=== PATIENT | male | born 1975 | race Caucasian/White ===

== ENCOUNTER 2017-06-19 12:55 | Day surgery (SDC) | payer BC ==
--- NOTE | 2017-06-19 14:40 | Operative Note ---
Upper GI Endoscopy Procedure date: 06/19/17 Date of : 73 Procedure:Upper GI Endoscopy Esophagogastroduodenoscopy with cold biopsies and TTS balloon dilation Indications: Mr. Mcduffie is a 42-year-old gentleman with epigastric and periumbilical abdominal discomfort with bloating, nausea and crampy discomfort. He reports some reflux and early satiety. He has occasional dysphagia to breads. He reports no heartburn. He has had no melena or weight loss. He was placed on MiraLAX plus Metamucil by Montse CALVILLO. He does have some obstipation. He had been on omeprazole and BuSpar 15 mg by mouth twice a day. Performing Provider: Carlos Wang MD Referring Provider: Geneva Gupta Sedation: Fentanyl 100 mg IV/Versed 7 mg IV Procedure: Prior to the procedure, a history and physical exam was performed, and patients medications and allergies were reviewed. The risks and benefits of the procedure and the sedation options and risks were discussed with the patient. All questions were answered and informed consent was obtained. The patient was brought to the procedure room. Patient identification and proposed procedure were verified by the physician and the nurse. The patient was placed in a left lateral decubitus position and the scope was passed under direct vision. Throughout the procedure, the patient's blood pressure, pulse, and oxygen saturations were monitored continuously. The endoscope was introduced through the mouth, and advanced to the second part of duodenum. The upper GI endoscopy was accomplished without difficulty. The patient tolerated the procedure well. Findings: The scope was passed directly into the upper esophagus and advanced to the third portion of the duodenum. The post bulbar duodenum and duodenal bulb were normal with normal mucosa and conniventes. Cold biopsies were taken from the post bulbar duodenum to rule out celiac disease. The scope was withdrawn through a normal duodenal bulb and pylorus into the stomach. There was linear erythema and of the antrum with punctate erosions suggestive of linear reactive gastritis and possibly some nonsteroidal anti-inflammatory drug gastropathy. The remainder of the antrum, body and fundus of the stomach were grossly normal. Upon retroflexion there was no hiatal hernia. 2 biopsies were taken in the antrum and along the lesser curvature for histology. The scope was then withdrawn into the esophagus. There were short tongues and at least a couple of islands of salmon colored mucosa distally that were biopsied to rule out intestinal metaplasia/ short segment Cornejo's esophagus. There was no evidence of reflux esophagitis or Schatzki's ring. There were tertiary contractions and evidence of moderate esophageal dysmotility. The entire esophagus was dilated to 60 Georgian/20 mm with a TTS hydrostatic balloon. There was some resistance at the cricopharyngeus/ upper esophageal sphincter. The remainder of the esophageal mucosa was normal. Immediate complications: None EBL (ml): 0 Impression: 1. Cricopharyngeal spasm 2. Nonerosive gastroesophageal reflux disease with mild esophageal dysmotility and possible very short segment Cornejo's esophagus 3. Linear reactive gastritis Recommendations: I will follow up the biopsies. I do feel that the patient has functional dyspepsia and functional gastroesophageal reflux disease related to his obstipation. I would continue the fiber bowel regimen and treatment for visceral sensitivity. We will discuss additional treatment options. at [id number]
[2017-06-19 17:42] VITALS: BP 141/90
== END 2017-06-19 15:35 | disposition home or self-care (01) ==
LOC: SDC 12:55
PROVIDERS: Internal Medicine Gastroenterology
PROC: 0D758ZZ Dilation of Esophagus, Via Natural or Artificial Opening Endoscopic (ICD-10-PCS; 2017-06-19)
PROC: 0DB78ZX Excision of Stomach, Pylorus, Via Natural or Artificial Opening Endoscopic, Diagnostic (ICD-10-PCS; principal; 2017-06-19 14:30)
DX: K22.4 Dyskinesia of esophagus (principal); K21.9 Gastro-esophageal reflux disease without esophagitis; K29.60 Other gastritis without bleeding
CPT/HCPCS: C1726